=== PATIENT | female | born 2000 | race Caucasian/White ===

== ENCOUNTER 2025-03-06 04:07 | Day surgery (SDC) | payer BC, OTHER ==
[2025-03-06 04:26] VITALS: BMI 36.7
[2025-03-06] MEDS ORDERED: hydrALAZINE 20 MG/ML VIAL SLOW IVP PRN (07:06)
== END 2025-03-06 06:45 | disposition home or self-care (01) ==
LOC: CSHLD/OP 04:07
PROVIDERS: ATTEND Obstetrics & Gynecology
DX: O47.1 False labor at or after 37 completed weeks of gestation (principal); Z3A.39 39 weeks gestation of pregnancy; Z79.899 Other long term (current) drug therapy